=== PATIENT | male | born 1960 | race Caucasian/White ===

== ENCOUNTER 2019-12-31 19:49 | Emergency (ER) | payer BC ==
[~2019-12-31] VITALS: Ht 177.8 cm; Wt 86.2 kg
[2019-12-31 20:53] LABS: ABSOLUTE NEUTROPHILS 4.4 thou/uL (1.4-8.2); BASOPHILS 0.5 % (0.0-2.0); EOSINOPHILS 2.9 % (0.0-3.0); HEMATOCRIT 41.6 % (42.0-52.0); HEMOGLOBIN 14.6 gm/dL (14.0-18.0); LYMPHOCYTES 26.2 % (24.0-44.0); MCH 31.7 pg (26.0-34.0); MCHC 35.1 g/dL (28.0-37.0); MCV 90.4 fL (80.0-100.0); MONOCYTES 10.9 % (1.0-8.0); PLATELET COUNT 240 thou/uL (150-400); POLYS 59.5 % (36.0-66.0); RDW 13.3 % (10.5-14.5); WBC 7.5 thou/uL (4.0-11.0)
[2019-12-31 20:59] LABS: ANION GAP 9 mmol/L (7-16); BUN 13 mg/dL (7-18); CALCIUM 8.3 mg/dL (8.5-10.1); CHLORIDE 103 mmol/L (98-107); CO2 27 mmol/L (21-32); GLUCOSE 98 mg/dL (74-106); POTASSIUM 3.5 mmol/L (3.5-5.1); SODIUM 139 mmol/L (136-145)
[2019-12-31 21:10] LABS: ALBUMIN 3.1 g/dL (3.4-5.0); SGOT 30 U/L (15-37); SGPT 32 U/L (30-65); TOTAL BILIRUBIN 0.6 mg/dL (0.2-1.0); TOTAL PROTEIN 7.6 g/dL (6.4-8.2); TROPONIN-I <0.06 ng/mL (<0.06)
[2019-12-31] MEDS ORDERED: PROMETH-CODEIN 65 ML PO (21:53)
[2019-12-31] MEDS ORDERED: PROAIR HFA8.5 GM INH (21:53)
[2019-12-31 23:30] VITALS: BP 119/84
--- NOTE | 2020-01-02 08:12 | EKG ---
[facility] [place] [address] ELECTROCARDIOGRAM REPORT Name: TANGCHLOÉ Room #: DEP [facility]#: [id number] Admission: 12/31/19 Attend Phys: Discharge: 12/31/19 Date of : 64 Report #: [id number] THIS REPORT FOR: cc: LUCRECIA - Lillian family physician/PCP FAM - No family physician/PCP Angel Arzola MD ~ THIS REPORT FOR: //name// [facility] ED Test Date: 2019-12-31 Test Time: 20:41:00 Pat Name: CHLOÉ TANG Department: Patient ID: [id number]- Room: Gender: M Form Raiser: [facility] : 1960 Requested By: Josr Craig Order Number: [id number] MD: Angel Arzola Measurements Intervals [place] Rate: 73 P: 52 NC: 141 QRS: 36 QRSD: 95 T: 31 QT: 400 QTc: 441 Interpretive Statements Sinus rhythm Baseline wander in lead(s) V2 No previous ECG available for comparison Electronically Signed On 01-02-2020 8:12:34 CDT by Angel Arzola [email or web address] <ELECTRONICALLY SIGNED> By: Angel Arzola MD 01/02/2012 40 40 Angel Arzola MD /IDA
== END 2019-12-31 23:30 | disposition home or self-care (01) ==
LOC: ER 19:49
PROVIDERS: Physician Assistant
DX: U07.1 COVID-19 (principal); R42 Dizziness and giddiness